=== PATIENT | male | born 1980 | race Two or more races ===

== ENCOUNTER 2022-10-09 12:24 | Emergency (ER) | payer OTHER ==
[2022-10-09 12:38] VITALS: BP 128/92; PULSE 98; RESP 18; TEMP 99; BMI 27.3
[2022-10-09] MEDS ORDERED: NAPROXEN 500 MG TABLET PO ONE (12:54)
[2022-10-09] MEDS ORDERED: oxyCODONE HCL 5 MG TABLET PO ONE (12:54)
[2022-10-09] MEDS ORDERED: oxyCODONE HCL 5 MG TABLET ONE (12:58)
[2022-10-09] MEDS ORDERED: NAPROXEN 500 MG TABLET ONE (12:58)
[2022-10-09] MEDS ORDERED: DEXAMETHASONE 4 MG TABLET (FP) PO STA (13:37)
[2022-10-09] MEDS ORDERED: ONDANSETRON *ODT* 4 MG TABLET SL ONE (13:54)
[2022-10-09] MEDS ORDERED: ONDANSETRON *ODT* 4 MG TABLET ONE (14:02)
== END 2022-10-09 15:20 | disposition home or self-care (01) ==
LOC: FER 12:24
DX: M54.50 Low back pain, unspecified (principal)
CPT/HCPCS: 72131-TC; 99284-25; Q0162

== ENCOUNTER 2023-04-20 10:32 | Emergency (ER) | payer OTHER ==
[2023-04-20 10:40] VITALS: BP 138/92; PULSE 91; RESP 18; TEMP 97.6; BMI 26.6
[2023-04-20 11:20] LABS: BASO % 0.4 % (0-2.0); EOS % 1.4 % (0-4.5); HEMATOCRIT 50.4 % (35.4-49); HEMOGLOBIN 16.9 GM/dL (11.7-16.9); LYMPH % 19.3 % (8-40); MCH 28.2 pg (25.7-33.7); MCHC 33.6 g/dl (32.0-35.9); MEAN CELL VOLUME 83.9 fl (80-96); MEAN PLT VOLUME 8.6 fl (7.5-11.1); MONO % 5.9 % (3.8-10.2); PLATELET COUNT 323 10^3/uL (134-434); RBC 6.01 M/mm3 (4.00-5.60); RDW 14.1 % (11.9-15.9)
[2023-04-20] MEDS ORDERED: SODIUM CHLORIDE 0.9% 500 ML INFUS.BAG IV ONE (11:22)
[2023-04-20] MEDS ORDERED: ACETAMINOPHEN 1000 MG/100 ML BAG IVPB ONE (11:22)
[2023-04-20 11:26] LABS: INR 1.02 (0.83-1.09); PROTHROMBIN TIME (PATIENT) 11.8 SEC (9.7-13.0)
[2023-04-20] MEDS ORDERED: ACETAMINOPHEN INJECTION 100 ML IVPB ONE (11:28)
[2023-04-20 11:29] LABS: ACTIVATED PTT 32.4 SECONDS (25.2-36.5)
[2023-04-20 11:35] LABS: POTASSIUM 4.6 mmol/L (3.5-5.1)
[2023-04-20 11:37] LABS: CALCIUM 10.1 mg/dL (8.5-10.1)
[2023-04-20 11:38] LABS: ALBUMIN 4.8 g/dl (3.4-5.0); BLOOD UREA NITROGEN 9.2 mg/dL (7-18)
[2023-04-20 11:41] LABS: CREATININE 1.2 mg/dL (0.55-1.3)
[2023-04-20 11:42] LABS: BILIRUBIN,TOTAL 1.7 mg/dL (0.2-1)
[2023-04-20 12:12] LABS: URINE APPEARANCE CLEAR; URINE BILIRUBIN NEGATIVE (NEGATIVE); URINE COLOR YELLOW; URINE GLUCOSE (UA) NEGATIVE (NEGATIVE); URINE KETONE NEGATIVE (NEGATIVE); URINE LEUK ESTERASE NEGATIVE (NEGATIVE); URINE NITRITE NEGATIVE (NEGATIVE); URINE PROTEIN NEGATIVE (NEGATIVE); URINE UROBILINOGEN 0.2 mg/dL (0.2-1.0)
[2023-04-20 13:01] LABS: EPI CELLS 4 /uL (0-25.1); HYALINE CASTS 0 /uL (0-3.1); URINE BACTERIA 2 /uL (0-1359); URINE RBC 7 /uL (0-23.9); URINE WBC 2 /uL (0-25.8)
== END 2023-04-20 13:10 | disposition home or self-care (01) ==
LOC: JER 10:32
PROC: 3E033NZ Introduction of Analgesics, Hypnotics, Sedatives into Peripheral Vein, Percutaneous Approach (ICD-10-PCS; principal; 2023-04-20)
DX: R31.9 Hematuria, unspecified (principal); R10.11 Right upper quadrant pain; R30.0 Dysuria; R10.31 Right lower quadrant pain
CPT/HCPCS: 36415; 74176-TC; 80053; 81003; 83690; 85025; 85610; 85730; 86850; 86900; 86901; 87086; 99284-25